=== PATIENT | male | born 2005 | race Caucasian/White ===

== ENCOUNTER 2023-07-02 20:36 | Emergency (ER) | payer OTHER ==
[~2023-07-02] VITALS: Ht 167.6 cm; Wt 137.0 kg
[~2023-07-02 20:36] MED LIST: tylenol
[2023-07-02 21:24] VITALS: BP 135/82; PULSE 100; RESP 16; TEMP 99.3; O2SAT 98
[2023-07-03] MEDS ORDERED: COROTSOL RIGHT EAR (00:09)
== END 2023-07-03 00:12 | disposition home or self-care (01) ==
LOC: MED 20:36
DX: H60.91 Unspecified otitis externa, right ear (principal); Z79.899 Other long term (current) drug therapy
CPT/HCPCS: 99282